=== PATIENT | female | born 1950 | race Caucasian/White ===

== ENCOUNTER → 2017-04-13 | Outpatient (CLI) | payer OTHER ==
--- NOTE | 2017-04-13 10:05 | RAD ---
Left great toe, 2 views, 04/13/2017: History: Injury, pain and redness There is bony demineralization. Mild degenerative change is present at the first MTP joint. No fracture or dislocation is identified. IMPRESSION: No acute bony abnormality is detected.
== END | disposition home or self-care (01) ==
LOC: DXRADRC 09:37
PROVIDERS: ATTEND Physician Assistant
DX: M79.675 Pain in left toe(s) (principal); X58.XXXD Exposure to other specified factors, subsequent encounter
CPT/HCPCS: 73660